=== PATIENT | female | born 1975 | race Caucasian/White ===

== ENCOUNTER 2016-09-08 09:03 | Emergency (ER) | payer MEDICAID ==
[~2016-09-08] VITALS: Ht 165.1 cm; Wt 85.7 kg
[2016-09-08 09:13] VITALS: BP 152/97
[2016-09-08] MEDS: HYDROcodone/APAP 10/325 MG 1 TAB TAB PO ONE (10:18)
[2016-09-08 10:56] LABS: ALBUMIN 3.4 g/dL (3.4-5.0); ANION GAP 10.6 (8-16); CALCIUM 8.5 mg/dL (8.5-10.1); CARBON DIOXIDE 28.6 mmol/L (21-32); CREATININE 0.7 mg/dL (0.6-1.3); POTASSIUM 4.2 mmol/L (3.5-5.1); TOTAL BILIRUBIN 0.4 mg/dL (0.0-1.0); TOTAL PROTEIN, SERUM 7.5 g/dL (6.4-8.2)
[2016-09-08 11:02] LABS: BASOPHILS # (AUTO) 0.1 K/uL (0.00-0.22); BASOPHILS % (AUTO) 0.9 % (0.0-2.0); EOSINOPHILS # (AUTO) 0.3 K/uL (0-0.4); EOSINOPHILS % (AUTO) 2.1 % (0.0-4.0); HEMATOCRIT 36.4 % (36-48); HEMOGLOBIN 11.6 g/dL (12.0-16.0); LYMPHOCYTES # (AUTO) 1.9 K/uL (2.5-16.5); LYMPHOCYTES % (AUTO) 14.3 % (20.5-51.1); MEAN CORPUSCULAR HEMOGLOBIN 26 pg (27-31); MEAN CORPUSCULAR HGB CONC 32 g/dL (33-37); MEAN CORPUSCULAR VOLUME 81 fL (80-94); MONOCYTES # (AUTO) 0.8 K/uL (0.8-1.0); MONOCYTES % (AUTO) 6.1 % (1.7-9.3); NEUTROPHILS # (AUTO) 10.5 K/uL (1.8-7.7); NEUTROPHILS % (AUTO) 76.6 % (42.2-75.2); PLATELET COUNT (AUTO) 202 K/uL (140-450); RED BLOOD CELL COUNT(AUTO) 4.48 MIL/uL (4.20-5.40); RED CELL DISTRIBUTION WIDTH 13.4 % (11.6-13.7); WHITE BLOOD COUNT (AUTO) 13.6 K/uL (4.8-10.8)
[2016-09-08 13:29] VITALS: BP 127/80
== END 2016-09-08 13:28 | disposition home or self-care (01) ==
LOC: MED 09:03
DX: R51 Headache (principal); M54.2 Cervicalgia; J02.9 Acute pharyngitis, unspecified
CPT/HCPCS: 36415; 80053; 81002; 81025; 85025; 87081; 99284

== ENCOUNTER 2016-12-14 10:04 | Emergency (ER) | payer MEDICAID ==
[~2016-12-14] VITALS: Ht 162.6 cm; Wt 85.7 kg
[2016-12-14 10:29] VITALS: BP 143/92
[2016-12-14 11:06] LABS: APPEARANCE,URINE HAZY (CLEAR); BILIRUBIN,URINE NEGATIVE (NEGATIVE); BLOOD, URINE 3+ (NEGATIVE); COLOR,URINE RED (YELLOW); LEUKOCYTE ESTERASE ,URINE 1+ (NEGATIVE); NITRITE, URINE POSITIVE (NEGATIVE); PH,URINE 6.5 (5.0-9.0); UGLUCOSE NEGATIVE (NEGATIVE)
[2016-12-14 11:28] LABS: RBC,URINE >20 (MANY) /HPF (0-5)
--- NOTE | 2016-12-14 12:05 | NUR ---
Patient ambulated to bed 7. RN evaluating patient at bedside.
--- NOTE | 2016-12-14 12:06 | NUR ---
41/F BIB SELF C/O VAGINAL BLEEDING X 15 DAYS WITH ABDOMENAL AND BACK PAIN 5/10; DENIES N/V/D; SKIN IS PINK/WARM/DRY; AAOX4 WITH EVEN AND STEADY GAIT; LUNGS CLEAR BL; HR EVEN AND REGULAR; PT DENIES ANY FEVER, CP, SOB, OR COUGH AT THIS TIME; PATIENT STATES PAIN OF 5/10 AT THIS TIME; VSS; PATIENT POSITIONED FOR COMFORT; HOB ELEVATED; BEDRAILS UP X2; BED DOWN. ER MD MADE AWARE OF PT STATUS.
--- NOTE | 2016-12-14 12:16 | NUR ---
Patient being evaluated by DR IVAN at bedside.
[2016-12-14 12:36] VITALS: BP 139/90
--- NOTE | 2016-12-14 12:36 | NUR ---
Patient discharged with v/s stable. Written and verbal after care instructions given and explained. Patient alert, oriented and verbalized understanding of instructions. Ambulatory with steady gait. All questions addressed prior to discharge. ID band removed. Patient advised to follow up with PMD. Rx of NORETHIDRONE given. Patient educated on indication of medication including possible reaction and side effects. Opportunity to ask questions provided and answered.
== END 2016-12-14 12:36 | disposition home or self-care (01) ==
LOC: MED 10:04
DX: N93.8 Other specified abnormal uterine and vaginal bleeding (principal)
CPT/HCPCS: 81001; 81025; 87086; 99284

== ENCOUNTER 2023-02-28 10:32 | Emergency (ER) | payer MEDICAID ==
[~2023-02-28] VITALS: Ht 162.6 cm; Wt 89.4 kg
[2023-02-28 10:39] VITALS: BP 124/81; PULSE 82; RESP 16; TEMP 97.3; O2SAT 99
[2023-02-28] MEDS ORDERED: FLUORESCEIN OPTH STRIP 1 MG OP ONE (12:10)
[2023-02-28] MEDS ORDERED: TETRACAINE HCL/PF 0.5% OPTH 4 ML BTL OP ONE (12:10)
[2023-02-28 14:17] VITALS: BP 124/81; PULSE 82; RESP 16; TEMP 97.3; O2SAT 99
== END 2023-02-28 14:18 | disposition home or self-care (01) ==
LOC: MED 10:32
DX: H11.32 Conjunctival hemorrhage, left eye (principal); Z79.899 Other long term (current) drug therapy
CPT/HCPCS: 99284

== ENCOUNTER 2023-03-02 14:29 | Emergency (ER) | payer MEDICAID ==
[~2023-03-02] VITALS: Ht 160 cm; Wt 88.0 kg
[2023-03-02 14:51] VITALS: BP 125/79; PULSE 88; RESP 18; TEMP 99.3; O2SAT 97
[2023-03-02] MEDS ORDERED: ONDANSETRON 4 MG/2 ML VIAL IVP ONE (15:25)
[2023-03-02] MEDS: diphenhydrAMINE 50 MG/ML VIAL IVP ONE (15:30)
[2023-03-02] MEDS: METOCLOPRAMIDE 10 MG/2 ML INJ VIAL IVP ONE (15:30)
[2023-03-02 16:21] LABS: BASOPHILS % (AUTO) 0.2 % (0.0-2.0); EOSINOPHILS % (AUTO) 0.2 % (0.0-4.0); HEMATOCRIT 39.8 % (36-48); HEMOGLOBIN 13.3 g/dL (12.0-16.0); LYMPHOCYTES # (AUTO) 0.7 K/uL (2.5-16.5); LYMPHOCYTES % (AUTO) 7.6 % (20.5-51.1); MEAN CORPUSCULAR HEMOGLOBIN 27 pg (27-31); MEAN CORPUSCULAR HGB CONC 33 g/dL (33-37); MEAN CORPUSCULAR VOLUME 82.2 fL (80-94); MONOCYTES # (AUTO) 0.6 K/uL (0.8-1.0); MONOCYTES % (AUTO) 6.6 % (1.7-9.3); NEUTROPHILS # (AUTO) 7.5 K/uL (1.8-7.7); NEUTROPHILS % (AUTO) 85.4 % (42.2-75.2); PLATELET COUNT (AUTO) 187 K/uL (140-450); RED BLOOD CELL COUNT(AUTO) 4.84 MIL/uL (4.20-5.40); RED CELL DISTRIBUTION WIDTH 13.8 % (11.6-13.7); WHITE BLOOD COUNT (AUTO) 8.8 K/uL (4.8-10.8)
[2023-03-02] MEDS: NACL 0.9% 1,000 ML IV SCH (16:33)
[2023-03-02] MEDS ORDERED: diphenhydrAMINE 50 MG/ML VIAL ONE (16:47)
[2023-03-02] MEDS ORDERED: METOCLOPRAMIDE 10 MG/2 ML INJ VIAL ONE (16:47)
[2023-03-02] MEDS ORDERED: ONDANSETRON 4 MG/2 ML VIAL ONE (16:47)
[2023-03-02 16:50] LABS: ALBUMIN 3.8 g/dL (3.4-5.0); ANION GAP 15.7 (8-16); CALCIUM 9.2 mg/dL (8.5-10.1); CARBON DIOXIDE 23.2 mmol/L (21-32); CREATININE 0.6 mg/dL (0.6-1.3); POTASSIUM 3.9 mmol/L (3.5-5.1); TOTAL BILIRUBIN 0.4 mg/dL (0.0-1.0); TOTAL PROTEIN, SERUM 7.7 g/dL (6.4-8.2)
[2023-03-02 16:59] LABS: APPEARANCE,URINE CLEAR (CLEAR); BILIRUBIN,URINE NEGATIVE (NEGATIVE); BLOOD, URINE NEGATIVE (NEGATIVE); COLOR,URINE YELLOW (YELLOW); LEUKOCYTE ESTERASE ,URINE NEGATIVE (NEGATIVE); NITRITE, URINE NEGATIVE (NEGATIVE); PH,URINE 8.5 (5.0-9.0); PROTEIN,URINE TRACE (NEGATIVE); UGLUCOSE NEGATIVE (NEGATIVE); UROBILINOGEN,URINE 0.2 EU/dL (0.2 - 1)
[2023-03-02 17:03] LABS: BACTERIA,URINE FEW /HPF (None Seen); RBC,URINE 0-5 /HPF (0-5); SQUAMOUS EPITHELIAL CELL,UR 20-50 /LPF (0-3 (FEW)); WBC,URINE 0-5 /HPF (0-5)
[2023-03-02] MEDS ORDERED: OMEP40EC23 PO (17:22)
[2023-03-02] MEDS ORDERED: ONDA-188 SL (17:22)
[2023-03-02 18:00] VITALS: BP 120/79; PULSE 88; RESP 18; TEMP 98; O2SAT 99
== END 2023-03-02 18:00 | disposition home or self-care (01) ==
LOC: MED 14:29
DX: R51.9 Headache, unspecified (principal); R11.2 Nausea with vomiting, unspecified; R10.13 Epigastric pain; Z71.6 Tobacco abuse counseling; Z79.899 Other long term (current) drug therapy
CPT/HCPCS: 36415; 70450; 71045; 80053; 81001; 81025; 83690; 84484; 84702; 85025; 93005; 96361; 96374; 96375; 99285; J1200; J2405; J2765; J7030